=== PATIENT | male | born 1960 | race Caucasian/White ===

== ENCOUNTER 2021-02-12 15:50 | Inpatient (IN) | payer MEDICAID ==
[~2021-02-12] VITALS: Ht 165.1 cm; Wt 72.6 kg
[2021-02-12 18:01] VITALS: BP 129/75
[2021-02-12 18:43] LABS: BILIRUBIN NEGATIVE (NEGATIVE); KETONE NEGATIVE (NEGATIVE); NITRITE NEGATIVE (NEGATIVE); UROBILINOGEN NORMAL mg/dL (< 2)
[2021-02-12 18:47] LABS: WHITE CELLS - URINE 0-5 HPF (0-1)
[2021-02-12 18:48] LABS: AMORPHOUS SEDIMENT MODERATE LPF (NONE SEEN); BACTERIA MODERATE HPF (NONE SEEN); SQUAMOUS EPITHELIAL 0-5 HPF (0-4)
[2021-02-12 20:00] VITALS: BP 115/81
[2021-02-12] MEDS ORDERED: CARAFATE1 G PO (20:26)
[2021-02-12] MEDS ORDERED: LISINOPRIL40 MG PO (20:27)
[2021-02-13] VITALS: BP 96/65
[2021-02-13 04:00] VITALS: BP 108/69
[2021-02-13 07:01] LABS: BASOPHILS 0.1 % (0-2); EOSINOPHILS 0.3 % (0-7); HEMATOCRIT 44.9 % (42.0-54.0); HEMOGLOBIN 15.5 g/dL (13.5-17.5); IMMATURE GRANULOCYTES 0.2 % (0-5); LYMPHOCYTE ABS# 1.33 10x3/uL (1.32-3.57); LYMPHOCYTES 9.9 % (15-50); MCH 32.4 pg (26.0-34.0); MCHC 34.5 g/dL (31.0-37.0); MCV 93.7 fL (80.0-100.0); MEAN PLATELET VOLUME 10.8 fL (7.4-10.4); MONOCYTES 11.2 % (2-11); NEUTROPHIL ABS# 10.51 10x3/uL (1.78-5.38); NEUTROPHILS 78.3 % (40-80); PLATELET COUNT 233 10x3/uL (130-400); RBC 4.79 10x6/uL (4.20-6.10); RDW 13.3 % (11.5-14.5); WBC 13.4 10x3/uL (4.8-10.8)
--- NOTE | 2021-02-13 07:30 | NUR ---
AWAKE AND ALERT. ORIENTED X3. NO C/O AT THIS TIME. LUNGS ARE CLEAR BILATERALLY, NO COUGH NOTED. SKIN IS INTACT WTIHOUT REDNESS. IV TO RIGHT AC IS PATENT WITHOUT REDNESS AT INSERTION SITE. DENIES NEEDS.
[2021-02-13 07:39] LABS: ALBUMIN 2.8 g/dL (3.4-5.0); ANION GAP 18.6 mmol/L (8-16); BILIRUBIN - TOTAL 0.42 mg/dL (0.2-1.3); CALCIUM 8.9 mg/dL (8.5-10.1); CARBON DIOXIDE 18.1 mmol/L (21.0-32.0); CHOL - HDL RATIO 2.5 ratio (2.3-4.9); CREATININE - SERUM 7.2 mg/dL (0.6-1.3); LDL-HDL RATIO 1.1 ratio (1.5-3.5); MAGNESIUM - SERUM 2.3 mg/dL (1.8-2.4); PHOSPHOROUS 3.6 mg/dL (2.5-4.9); POTASSIUM - SERUM 5.7 mmol/L (3.5-5.1); PROTEIN - SERUM 6.6 g/dL (6.4-8.2)
[2021-02-13 08:52] VITALS: BP 124/83
--- NOTE | 2021-02-13 10:31 | NUR ---
PATIENT C/O PAIN IN MIDDLE OF CHEST ABOVE STOMACH BURNING SENSATION, STATES HE HAS RX FOR CARAFATE THAT USE TO HELP BUT NOW WHEN HE TAKES IT HE STARTS TO HICCUP TO AN EXTENT WHERE HE STARTS TO VOMIT. PATIENT STATES HE DOES NOT HAVE A GI DOCTOR NOR HAS HE EVER HAD AN EGD. STATES AFTER HE VOMITS THEN THE HICCUPS ARE GONE. INFORMED WE WILLRELAY TO DOCTOR
[2021-02-13 10:50] LABS: INR 1.19 (0.85-1.17)
--- NOTE | 2021-02-13 12:00 | NUR ---
OFF UNIT FOR CT SCAN.
--- NOTE | 2021-02-13 12:23 | NUR ---
RETURNED FROM CT. LUNCH SERVED IN ROOM. DENIES NEEDS.
[2021-02-13 12:29] VITALS: BP 129/92
[2021-02-13 12:34] VITALS: Ht 165.1 cm; Wt 72.6 kg
[2021-02-13 13:28] LABS: CKMB 1.7 U/L (0.0-3.6); CREATINE KINASE 176 UL (21-232); TROPONIN-I < 0.017 ng/mL (0.000-0.060)
--- NOTE | 2021-02-13 16:15 | NUR ---
DR BARRIOS HERE. NEW ORDERS RECEIVED. STOOL SPECIMEN COLLECTED AND SENT TO LAB. BLADDER SCAN COMPLETED AND SHOWED 152 CC. PATIENT UNABLE TO VOID AT THIS TIME. DENIES NEEDS. FAMILY AT BEDSIDE.
[2021-02-13 17:12] VITALS: BP 130/89
[2021-02-13 17:50] LABS: CALC OSMOLALITY 299 mosm/kg (275-300); CALCIUM 9.1 mg/dL (8.5-10.1); CARBON DIOXIDE 16.8 mmol/L (21.0-32.0); CHLORIDE - SERUM 104 mmol/L (98-107); CREATININE - SERUM 7.4 mg/dL (0.6-1.3); GLUCOSE 106 mg/dL (74-106); SODIUM 136 mmol/L (136-145); UREA NITROGEN 90 mg/dL (7-18); eGFR NON AFRICAN AMERICAN 8 mL/min (90-120)
[2021-02-13 17:57] LABS: POTASSIUM - SERUM 4.5 mmol/L (3.5-5.1)
[2021-02-13 18:07] LABS: ALBUMIN 2.9 g/dL (3.4-5.0); ALKALINE PHOSPHATASE 62 U/L (30-120); ALT (SGPT) 25 U/L (10-68); CKMB 1.8 U/L (0.0-3.6); CREATINE KINASE 157 UL (21-232); PROTEIN - SERUM 6.7 g/dL (6.4-8.2)
[2021-02-13 18:14] LABS: TROPONIN-I < 0.017 ng/mL (0.000-0.060)
--- NOTE | 2021-02-13 18:52 | NUR ---
SITTING UP IN CHAIR AT BEDSIDE. SON IN ROOM. DENIES NEEDS. NO CHANGES NOTED.
--- NOTE | 2021-02-13 19:30 | NUR ---
RECEIVED BEDSIDE REPORT. PT LAYING IN BED A&O X4. PIV TO RIGHT AC, PATENT AND INFUSING, NO REDNESS OR SWELLING. TELEMETRY IN PLACE, [address] EDUCATED PT ON CL AND NEEDS, VERBALIZED UNDERSTANDING. BED LOW, CL IN REACH.
--- NOTE | 2021-02-13 19:44 | NUR ---
SPOKE WITH MD BARRIOS, GAVE ORDERS FOR BOLUS 1000ML LR, INITIATED BLOUS AND EDUCATED PT. WILL CONTINUE TO MONITOR.
--- NOTE | 2021-02-13 21:15 | NUR ---
PT AMBULATED TO BR WITHOUT ASSIST. ABLE TO URINATE FOR UA, COLLECTED AND SENT TO LAB. PT REQUESTED SHOWER, COVERED PIV AND SUPERINTENDENT OIL FIELD DRILLING ASSISTED PT WITH SHOWER. WILL CONTINUE POC.
[2021-02-14 00:37] LABS: BILIRUBIN NEGATIVE (NEGATIVE); KETONE NEGATIVE (NEGATIVE); NITRITE NEGATIVE (NEGATIVE); UROBILINOGEN NORMAL mg/dL (< 2)
[2021-02-14 01:14] LABS: CKMB 1.2 U/L (0.0-3.6); CREATINE KINASE 144 UL (21-232); TROPONIN-I < 0.017 ng/mL (0.000-0.060)
[2021-02-14 05:48] VITALS: BP 171/97
[2021-02-14 05:54] VITALS: BP 142/101
[2021-02-14 06:48] LABS: BASOPHILS 0.1 % (0-2); EOSINOPHILS 0.9 % (0-7); HEMATOCRIT 40.5 % (42.0-54.0); HEMOGLOBIN 13.8 g/dL (13.5-17.5); IMMATURE GRANULOCYTES 0.2 % (0-5); LYMPHOCYTE ABS# 1.07 10x3/uL (1.32-3.57); LYMPHOCYTES 11.8 % (15-50); MCH 31.7 pg (26.0-34.0); MCHC 34.1 g/dL (31.0-37.0); MCV 93.1 fL (80.0-100.0); MEAN PLATELET VOLUME 10.5 fL (7.4-10.4); MONOCYTES 9.7 % (2-11); NEUTROPHILS 77.3 % (40-80); PLATELET COUNT 226 10x3/uL (130-400); RBC 4.35 10x6/uL (4.20-6.10)
[2021-02-14 06:51] LABS: INR 1.24 (0.85-1.17); PROTIME 14.4 SECONDS (11.6-15.0)
[2021-02-14 06:59] LABS: WBC 9.1 10x3/uL (4.8-10.8)
[2021-02-14 07:45] LABS: ALBUMIN 2.5 g/dL (3.4-5.0); BILIRUBIN - TOTAL 0.34 mg/dL (0.2-1.3); CALCIUM 8.4 mg/dL (8.5-10.1); CREATININE - SERUM 7.2 mg/dL (0.6-1.3); PHOSPHOROUS 4.1 mg/dL (2.5-4.9); PROTEIN - SERUM 5.9 g/dL (6.4-8.2)
[2021-02-14 07:46] LABS: ANION GAP 14.1 mmol/L (8-16); CARBON DIOXIDE 22.7 mmol/L (21.0-32.0); MAGNESIUM - SERUM 3.4 mg/dL (1.8-2.4); POTASSIUM - SERUM 3.8 mmol/L (3.5-5.1)
[2021-02-14 08:27] VITALS: BP 128/87
[2021-02-14 12:43] VITALS: BP 145/95
--- NOTE | 2021-02-14 13:48 | NUR ---
PT SITTING UP IN BED, NO SIGNS OF DISTRESS, NO NEEDS AT THIS TIME, FAMILY AT BEDSIDE
[2021-02-14 17:23] VITALS: BP 163/114
[2021-02-14 20:00] VITALS: BP 166/108
--- NOTE | 2021-02-14 21:00 | NUR ---
WATCHING TV WITH NO COMPALITNS VOICED. RESP UNLABORED. CL IN REACH
[2021-02-15 05:37] LABS: BASOPHILS 0.1 % (0-2); EOSINOPHILS 1.3 % (0-7); HEMATOCRIT 41.6 % (42.0-54.0); HEMOGLOBIN 14.6 g/dL (13.5-17.5); IMMATURE GRANULOCYTES 0.4 % (0-5); LYMPHOCYTES 12.7 % (15-50); MCH 31.9 pg (26.0-34.0); MCHC 35.1 g/dL (31.0-37.0); MONOCYTES 9.7 % (2-11); NEUTROPHIL ABS# 5.97 10x3/uL (1.78-5.38); NEUTROPHILS 75.8 % (40-80); PLATELET COUNT 222 10x3/uL (130-400); RBC 4.58 10x6/uL (4.20-6.10); RDW 12.5 % (11.5-14.5); WBC 7.9 10x3/uL (4.8-10.8)
[2021-02-15 05:38] LABS: MCV 90.8 fL (80.0-100.0)
[2021-02-15 05:43] LABS: INR 1.26 (0.85-1.17); PROTIME 14.6 SECONDS (11.6-15.0)
[2021-02-15 06:01] LABS: ALBUMIN 2.6 g/dL (3.4-5.0); BILIRUBIN - TOTAL 0.5 mg/dL (0.2-1.3); CALCIUM 8.1 mg/dL (8.5-10.1); CREATININE - SERUM 5.8 mg/dL (0.6-1.3); MAGNESIUM - SERUM 2.8 mg/dL (1.8-2.4); PHOSPHOROUS 3.6 mg/dL (2.5-4.9); PROTEIN - SERUM 6.2 g/dL (6.4-8.2)
[2021-02-15 06:03] LABS: ANION GAP 9.6 mmol/L (8-16); CARBON DIOXIDE 30.6 mmol/L (21.0-32.0); POTASSIUM - SERUM 3.2 mmol/L (3.5-5.1)
[2021-02-15 07:00] VITALS: BP 141/93
--- NOTE | 2021-02-15 07:50 | NUR ---
SITTING UP IN BED WITH EYES OPEN, ALERT AND ORIENTED, AT THE BEDSIDE. IV LOCATED TO RIGHT ARM WITH BICARB RUNNING @ 125, MVI @ 25ML/HR. NO CURRENT S/S OF DISTRESS, DENIES CURRENT NEEDS, WILL CONT TO MONITOR.
--- NOTE | 2021-02-15 13:53 | NUR ---
WALKED 250 WITH IVPOLE CGA
[2021-02-15 15:07] VITALS: BP 164/108
[2021-02-15 20:42] VITALS: BP 129/96
--- NOTE | 2021-02-15 23:41 | NUR ---
I have reviewed this patient and I concur with the Shift Assessment completed by the Licensed Practical Nurse today this shift.
[2021-02-16] VITALS: BP 150/117
[2021-02-16 06:27] LABS: BASOPHILS 0.1 % (0-2); EOSINOPHILS 1.8 % (0-7); HEMATOCRIT 42.6 % (42.0-54.0); HEMOGLOBIN 14.7 g/dL (13.5-17.5); IMMATURE GRANULOCYTES 0.5 % (0-5); LYMPHOCYTE ABS# 1.34 10x3/uL (1.32-3.57); LYMPHOCYTES 17.2 % (15-50); MCH 31.6 pg (26.0-34.0); MCHC 34.5 g/dL (31.0-37.0); MCV 91.6 fL (80.0-100.0); MEAN PLATELET VOLUME 9.9 fL (7.4-10.4); MONOCYTES 11.6 % (2-11); NEUTROPHIL ABS# 5.35 10x3/uL (1.78-5.38); NEUTROPHILS 68.8 % (40-80); PLATELET COUNT 249 10x3/uL (130-400); RBC 4.65 10x6/uL (4.20-6.10); RDW 12.7 % (11.5-14.5); WBC 7.8 10x3/uL (4.8-10.8)
[2021-02-16 06:34] LABS: INR 1.15 (0.85-1.17); PROTIME 13.7 SECONDS (11.6-15.0)
[2021-02-16 06:52] LABS: ALBUMIN 2.9 g/dL (3.4-5.0); ANION GAP 11.6 mmol/L (8-16); BILIRUBIN - TOTAL 0.31 mg/dL (0.2-1.3); CALCIUM 8.7 mg/dL (8.5-10.1); MAGNESIUM - SERUM 2.3 mg/dL (1.8-2.4); POTASSIUM - SERUM 3.6 mmol/L (3.5-5.1); PROTEIN - SERUM 6.5 g/dL (6.4-8.2)
[2021-02-16 07:03] LABS: CREATININE - SERUM 4.1 mg/dL (0.6-1.3)
--- NOTE | 2021-02-16 07:10 | NUR ---
REC'D IN BED WITH EYES OPEN. RESP EVEN AND UNLABORED WITH NO DISTRESS NOTED. CAN EXPRESS NEEDS AND WANTS. NO C/O NOTED OR VOICED. ASSESSMENT COMPLETED. C/L IN REACH AT BEDSIDE.
--- NOTE | 2021-02-16 09:41 | NUR ---
patient is up walking on his own and with family will take off therapy unless patient request pt to come back
[2021-02-16 10:18] VITALS: BP 174/116
[2021-02-16 12:08] LABS: PH - STOOL 6.5 (7.0-7.5)
[2021-02-16] MEDS ORDERED: NORVASC10 MG PO (12:57)
[2021-02-16 14:00] VITALS: BP 183/109
[2021-02-16] MEDS ORDERED: LEVOFLOXACIN500 MG PO (14:15)
[2021-02-16] MEDS ORDERED: FLAGYL500 MG PO (14:15)
--- NOTE | 2021-02-16 14:31 | MORECARE ---
CASE MANAGEMENT DISCHARGE SUMMARY PATIENT: LINDA CAMACHO UNIT: [id number] ADM DATE: 02/12/21 AGE: 60 : 56 SEX: M ROOM/BED: D.2208 AUTHOR: WONDOC PHYSICIAN: REFERRING PHYSICIAN: CAMELIA EATON MD DATE OF SERVICE: 02/16/21 Case Management Discharge Planning Summary DCP REVIEW SUMMARY ANTICIPATED D/C DATE: EXPECTED LOS : CASE STATUS: DCP Initiated INITIAL REVIEW: 02/12/2021 INITIAL REVIEWER: Ondina Ramsey FINAL DISCHARGE DISPOSITION: 01 : Home or Self Care (Routine Discharge) FINAL REVIEWER: FINAL REVIEW DATE: DCP Focus Questions & Answers QUESTION: ANSWER : PATIENT: LINDA CAMACHO ENCOUNTER: [id number] MEDICAL RECORD#: [id number] ADMISSION DATE: 02/12/2021 DISCHARGE DATE: ATTENDING MD: : AGE: 60 MARITAL STATUS: M DC PLAN ID: [id number] FACILITY: [facility] PRINTED ON: 02/16/21 14:31 CT All edits/amendments must be made on the electronic document DICTATION DATE: 02/16/211430 AUTO SUSPENSION AND STEERING MECHANIC: DM 02/16/21 143 RPT#: [id number] DC DATE: STATUS: ADM IN [facility] [address] [place] [address] END OF REPORT
[2021-02-16] MEDS ORDERED: NICODERM CQ1 EAC3 TOPICAL (14:37)
--- NOTE | 2021-02-16 14:45 | MORECARE ---
CASE MANAGEMENT DISCHARGE SUMMARY PATIENT: LINDA CAMACHO UNIT: [id number] ADM DATE: 02/12/21 AGE: 60 : 56 SEX: M ROOM/BED: D.2208 AUTHOR: WON,DOC PHYSICIAN: REFERRING PHYSICIAN: CAMELIA EATON MD DATE OF SERVICE: 02/16/21 Case Management Discharge Planning Summary COMMENTS ENTERED DATE: 02/16/21 14:30 CT COMMENT TYPE: Discharge Planning REVIEWER: Ondian Ramsey CM met with patient to complete initial dc planning assessment. CM educated patient on the CM role and verbal consent given by patient to complete assessment. Patient lives at home with his where he is independent with his care. At discharge patient plans to return home and feels this is a safe discharge. CM discussed availability of home health, rehab services, and medical equipment. Patient denied known discharge needs at this time. His will be his mechanic driver home today. CM will continue to follow and will assist as needed with dc plans/needs. DCP REVIEW SUMMARY ANTICIPATED D/C DATE: EXPECTED LOS : CASE STATUS: DCP Initiated INITIAL REVIEW: 02/12/2021 INITIAL REVIEWER: Ondina Ramsey FINAL DISCHARGE DISPOSITION: 01 : Home or Self Care (Routine Discharge) FINAL REVIEWER: FINAL REVIEW DATE: DCP Focus Questions & Answers QUESTION: ANSWER : PATIENT: LINDA CAMACHO ENCOUNTER: [id number] MEDICAL RECORD#: [id number] ADMISSION DATE: 02/12/2021 DISCHARGE DATE: ATTENDING MD: : AGE: 60 MARITAL STATUS: M DC PLAN ID: [id number] FACILITY: [facility] PRINTED ON: 02/16/21 14:45 CT All edits/amendments must be made on the electronic document DICTATION DATE: 02/16/211444 SUSTAIN ENGINEER: NEIDA 02/16/211444 RPT#: [id number] DC DATE: STATUS: ADM IN [facility] [address] [place] [address] END OF REPORT
--- NOTE | 2021-02-16 15:02 | NUR ---
DC HOME WITH ALL PERSONAL BELONGING. VOICES UNDERSTANDING OF DC ORDERS WITH AT BEDSIDE. IV DC. STABLE CONDITION UPON DEPARTURE.
--- NOTE | 2021-02-16 15:14 | MORECARE ---
CASE MANAGEMENT DISCHARGE SUMMARY PATIENT: LINDA CAMACHO UNIT: [id number] ADM DATE: 02/12/21 AGE: 60 : 56 SEX: M ROOM/BED: D.2208 AUTHOR: WON,DOC PHYSICIAN: REFERRING PHYSICIAN: CAMELIA EATON MD DATE OF SERVICE: 02/16/21 Case Management Discharge Planning Summary COMMENTS ENTERED DATE: 02/16/21 14:30 CT COMMENT TYPE: Discharge Planning REVIEWER: Ondina Ramsey CM met with patient to complete initial dc planning assessment. CM educated patient on the CM role and verbal consent given by patient to complete assessment. Patient lives at home with his where he is independent with his care. At discharge patient plans to return home and feels this is a safe discharge. CM discussed availability of home health, rehab services, and medical equipment. Patient denied known discharge needs at this time. 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 CM will continue to follow and will assist as needed with dc plans/needs. DCP REVIEW SUMMARY ANTICIPATED D/C DATE: EXPECTED LOS : CASE STATUS: DCP Initiated INITIAL REVIEW: 02/12/2021 INITIAL REVIEWER: Ondina Ramsey FINAL DISCHARGE DISPOSITION: 01 : Home or Self Care (Routine Discharge) FINAL REVIEWER: FINAL REVIEW DATE: DCP Focus Questions & Answers QUESTION: ANSWER : PATIENT: LINDA CAMACHO ENCOUNTER: [id number] MEDICAL RECORD#: [id number] ADMISSION DATE: 02/12/2021 DISCHARGE DATE: 02/16/2021 ATTENDING MD: : AGE: 60 MARITAL STATUS: M DC PLAN ID: [id number] FACILITY: [facility] PRINTED ON: 02/16/21 15:13 CT All edits/amendments must be made on the electronic document DICTATION DATE: 02/16/211512 STEAM TURBINE ASSEMBLER: NEIDA 02/16/21 151 RPT#: [id number] DC DATE:02/16/21 STATUS: DIS IN [place] [address] [place] [address] END OF REPORT
--- NOTE | 2021-02-18 08:45 | MORECARE ---
CASE MANAGEMENT DISCHARGE SUMMARY PATIENT: LINDA CAMACHO UNIT: [id number] ADM DATE: 02/12/21 AGE: 60 : 56 SEX: M ROOM/BED: D.2208 AUTHOR: WON,DOC PHYSICIAN: REFERRING PHYSICIAN: CAMELIA EATON MD DATE OF SERVICE: 02/18/21 Case Management Discharge Planning Summary COMMENTS ENTERED DATE: 02/16/21 14:30 CT COMMENT TYPE: Discharge Planning REVIEWER: Ondina Ramsey CM met with patient to complete initial dc planning assessment. CM educated patient on the CM role and verbal consent given by patient to complete assessment. Patient lives at home with his where he is independent with his care. At discharge patient plans to return home and feels this is a safe discharge. CM discussed availability of home health, rehab services, and medical equipment. Patient denied known discharge needs at this time. 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 CM will continue to follow and will assist as needed with dc plans/needs. DCP REVIEW SUMMARY ANTICIPATED D/C DATE: EXPECTED LOS : 0 CASE STATUS: DCP Complete INITIAL REVIEW: 02/12/2021 INITIAL REVIEWER: Ondina Ramsey FINAL DISCHARGE DISPOSITION: 01 : Home or Self Care (Routine Discharge) FINAL REVIEWER: Ondina Ramsey FINAL REVIEW DATE: 02/18/2021 DCP Focus Questions & Answers QUESTION: ANSWER : PATIENT: LINDA CAMACHO ENCOUNTER: [id number] MEDICAL RECORD#: [id number] ADMISSION DATE: 02/12/2021 DISCHARGE DATE: 02/16/2021 ATTENDING MD: IRASEMA: AGE: 60 MARITAL STATUS: M DC PLAN ID: [id number] FACILITY: [facility] PRINTED ON: 02/18/21 8:45 CT All edits/amendments must be made on the electronic document DICTATION DATE: 02/18/21844 ORNAMENTAL IRONWORKER: NEIDA 02/18/21844 RPT#: [id number] DC DATE:02/16/21 STATUS: DIS IN [facility] [address] [place] [address] END OF REPORT
[2021-02-18 20:07] LABS: OVA + PARASITE EXAM Final report (())
== END 2021-02-16 15:07 | disposition home or self-care (01) | DRG 684 ==
LOC: D.ER 15:50 → D.MS 17:50
PROVIDERS: Family Medicine; Internal Medicine; ADMIT Family Medicine; ATTEND Family Medicine
DX: N17.9 Acute kidney failure, unspecified (principal); K52.9 Noninfective gastroenteritis and colitis, unspecified; F10.20 Alcohol dependence, uncomplicated; F17.200 Nicotine dependence, unspecified, uncomplicated; I10 Essential (primary) hypertension; K21.9 Gastro-esophageal reflux disease without esophagitis; E86.0 Dehydration